=== PATIENT | male | born 1965 | race Caucasian/White ===

== ENCOUNTER 2017-05-11 10:44 | Outpatient (CLI) | payer OTHER ==
--- NOTE | 2017-05-11 13:48 | RAD ---
RIGHT RIBS: Date: 05-11-17 FINDINGS: Fractures of at least the right 7th and 8th ribs are noted with minimal displacement. There might be a 9th rib fracture but this is less certain. There is no sign of pneumothorax, pleural effusion or fo adela pulmonary infiltrate on the right side. IMPRESSION: At least two rib fractures, as noted. POS: HOME
== END 2017-05-11 10:45 | disposition home or self-care (01) ==
LOC: BURRAD 10:44
PROVIDERS: ATTEND Physician Assistant
DX: R07.89 Other chest pain (principal); S22.41XA Multiple fractures of ribs, right side, initial encounter for closed fracture

== ENCOUNTER 2018-04-12 22:17 | Emergency (ER) | payer OTHER ==
[2018-04-12] MEDS ORDERED: predniSONE 20 MG TAB ONE (23:06)
[2018-04-12] MEDS ORDERED: HYDROcodone/Acetaminophen 5/325 mg Tablet ONE (23:42)
[2018-04-12 23:47] LABS: Bilirubin Negative (Negative); Blood, Urine Negative (Negative); Clarity Clear (Clear); Glucose, Urine (Dipstick) Negative (Negative); Leukocyte Negative (Negative); Nitrite Negative (Negative); Protein, Urine (Dipstick) Negative (Neg-Trace); Urobilinogen 0.2 mg/dL (0.2-1.0)
== END 2018-04-13 00:24 | disposition home or self-care (01) ==
LOC: BURERS 22:17
DX: M54.16 Radiculopathy, lumbar region (principal); K21.9 Gastro-esophageal reflux disease without esophagitis
CPT/HCPCS: 81003; 99283; J7506

== ENCOUNTER 2018-04-17 11:02 | Outpatient (CLI) | payer OTHER ==
--- NOTE | 2018-04-17 16:31 | RAD ---
LUMBAR SPINE 3 VIEWS: Date: 04/17/18 Three views show no fracture or acute bony process. The L5-S1 level is not seen optimally on any view , though there may be slight disc space narrowing here and minimal spondylolisthesis. There is probab ly slight narrowing of the L3-L4 disc. If symptoms continue, then MRI could be useful in further eval uation. The SI joints are unremarkable. IMPRESSION: Low sensitivity study showing no acute findings. Possible minimal spondylolisthesis of L5 on S1 and q uestionable disc space narrowing at L3-L4 and L5-S1. POS: HOME
== END 2018-04-17 11:03 | disposition home or self-care (01) ==
LOC: BURRAD 11:02
PROVIDERS: ATTEND Family Medicine
DX: M54.16 Radiculopathy, lumbar region (principal)
CPT/HCPCS: 72100

== ENCOUNTER 2018-10-16 11:55 | Outpatient (CLI) | payer OTHER ==
--- NOTE | 2018-10-16 13:37 | RAD ---
CHEST 2 VIEWS: DATE: 10/16/2018. FINDINGS: Comparison is made with the prior study of 11/12/2015. The heart is normal in size and the lungs are clear. No acute infiltrate or effusion was seen. The left hilum is marginally more prominent than the right, but I feel it is most likely due to the patie nt being turned slightly. The trachea is midline. IMPRESSION: No acute thoracic findings. POS: HOME
== END 2018-10-16 11:56 | disposition home or self-care (01) ==
LOC: BUREKG 11:55
PROVIDERS: ATTEND Family Medicine
DX: Z01.818 Encounter for other preprocedural examination (principal)
CPT/HCPCS: 71046; 93005; 93010

== ENCOUNTER 2020-11-25 20:40 | Emergency (ER) | payer OTHER ==
[2020-11-25 22:14] LABS: #Basophils 0.1 thou/uL (0.0-0.2); #Lymphocytes 1.2 thou/uL (1.20-3.40); #Monocytes 0.5 thou/uL (0.11-0.59); %Basophils 0.9 % (0.0-1.0); %Eosinophils 0.1 % (0.0-10.0); %Lymphocytes 12.3 % (21.0-51.0); %Monocytes 5.3 % (0.0-10.0); %Neutrophils 81.5 % (42.0-75.0); Hemoglobin 17.2 g/dL (14.0-18.0); Mean Corpuscular HGB CONC 33.9 g/dL (32.0-36.0); Mean Corpuscular Hemoglobin 30.8 pg (27.0-31.0); Mean Corpuscular Volume 90.8 fL (78.0-98.0); Mean Platelet Volume 7.6 fL (7.4-10.4); Platelet Count 175 thou/uL (130-400); RBC Distribution Width 12.6 % (11.5-14.5); Red Blood Cell (RBC) Count 5.58 mill/uL (4.70-6.10); White Blood Cell (WBC) Count 9.8 thou/uL (4.8-10.8)
[2020-11-25 22:19] LABS: ALT (SGPT) 36 U/L (8-55); AST (SGOT) 30 U/L (5-34); Albumin 4.4 g/dL (3.5-5.0); Alkaline Phosphatase 85 U/L (40-110); Anion Gap 17 mmol/L (10-20); BUN (Urea Nitrogen) 11 mg/dL (8.4-25.7); Bilirubin, Total 0.7 mg/dL (0.2-1.2); CK (CPK) 183 U/L (30-200); Calc. Creatinine Clearance 0 mL/min (70-130); Calcium 9.3 mg/dL (7.8-10.44); Carbon Dioxide 24 mmol/L (22-29); Chloride 101 mmol/L (98-107); Globulin 3.6 g/dL (2.4-3.5); Glucose 105 mg/dL (70-105); Potassium 3.7 mmol/L (3.5-5.1); Sodium 138 mmol/L (136-145)
[2020-11-25 22:56] LABS: Bilirubin Negative (Negative); Blood, Urine Trace (Negative); Clarity Clear (Clear); Glucose, Urine (Dipstick) Negative (Negative); Ketone, Urine Negative (Negative); Leukocyte Negative (Negative); Nitrite Negative (Negative); Protein, Urine (Dipstick) Negative (Neg-Trace); Urobilinogen 0.2 mg/dL (Less than 2)
[2020-11-25 23:09] LABS: Bacteria/HPF Rare-Few HPF (None Seen); Mucous/LPF 1+ LPF (<2+); RBC/HPF 0-3 HPF (0-3)
[2020-11-25] MEDS ORDERED: Ibuprofen 800 MG TAB ONE (23:45)
[2020-11-26 17:10] LABS: SARS-CoV-2 PCR by NAA Not Detected (NotDetected)
== END 2020-11-26 00:42 | disposition home or self-care (01) ==
LOC: BURERS 20:40
DX: B34.9 Viral infection, unspecified (principal); Z20.822 Contact with and (suspected) exposure to COVID-19; G62.9 Polyneuropathy, unspecified
CPT/HCPCS: 80053; 81003; 81015; 82550; 83605; 85025; 87040; 87086; 87804; 99283; U0003; U0005